=== PATIENT | female | born 1935 | race Caucasian/White ===

== ENCOUNTER → 2016-12-18 | Outpatient (CLI) | payer OTHER, MEDICARE | LOC: BHLMT 09:15 | PROVIDERS: ATTEND Internal Medicine Cardiovascular Disease | DX: R01.1 Cardiac murmur, unspecified (principal); R09.89 Other specified symptoms and signs involving the circulatory and respiratory systems | CPT/HCPCS: 93306-PO; 93880-PO ==

== ENCOUNTER → 2017-09-22 | Outpatient (CLI) | payer OTHER, MEDICARE | LOC: BHLMT 14:00 | PROVIDERS: ATTEND Internal Medicine Cardiovascular Disease | DX: H34.239 Retinal artery branch occlusion, unspecified eye (principal); H34.211 Partial retinal artery occlusion, right eye | CPT/HCPCS: 93306-PO ==

== ENCOUNTER → 2018-03-29 | Outpatient (CLI) | payer OTHER, MEDICARE | LOC: BHFA 13:45 | PROVIDERS: ATTEND Nurse Practitioner Adult Health | DX: N18.3 Chronic kidney disease, stage 3 (moderate) (principal); I10 Essential (primary) hypertension ==

== ENCOUNTER 2018-04-01 16:24 | Inpatient (IN) | payer OTHER, MEDICARE ==
--- NOTE | 2018-04-01 17:47 | EDPHY ---
H & P Stated Complaint: Coordination problems left arm 1200. No noticeable deficit now. 2wk neck pn Time Seen by Provider: 04/01/18 16:58 HPI/ROS: My Chief Complaint: Discoordination, neck pain HPI: 83-year-old woman presenting with an episode of discoordination this morning. Patient states that she has been having some intermittent symptoms for the last couple weeks after she had jaw surgery. After just surgeries who is been having significant left-sided neck pain. This has been associated with episodes of hypertension. Her primary care physician started on metoprolol. She then switch to losartan which she started today. She took the 1st dose of losartan this morning at 9:00 a.m.. She says approximately 2 hr later she had an episode of discoordination on with her left hand. She was unable poor T and almost dropped a tea kettle. The symptoms lasted for about an hour and then resolved. She says the neck pain it tends to be worsening later afternoons in his associated with episodes when her blood pressure is high. She is currently pain-free. The daughter did notice some possible mild dysarthric speech as well. No difficulty word finding. No numbness or weakness. Daughter is also complaining that she had some discoordinated gait while she was having or discoordination of her left hand today. Does not have a history of prior episodes. No family history of stroke. ROS: 10 systems were reviewed and were negative except those elements noted in the HPI. Social History: No smoking, no alcohol, no recreational drug use Family History: non-contributory Physical Exam: Gen: Awake, Alert, No Distress HEENT: Nose: no rhinorrhea Eyes: PERRLA, EOMI Mouth: Moist mucosa Neck: Supple, no JVD Chest: nontender, lungs clear to auscultation Heart: S1, S2 normal, no murmur Abd: Soft, non-tender, no guarding Back: no CVA tenderness, no midline tenderness Ext: no edema, non-tender Skin: no rash Neuro: CN II-XII intact, Sensation grossly intact, Strength 5/5 in bilateral upper and lower extremities, see NIH stroke scale - Personal History Current Tetanus/Diphtheria Vaccine: Unsure - Medical/Surgical History Hx Asthma: Yes Hx Chronic Respiratory Disease: No Hx Diabetes: No Hx Cardiac Disease: No Hx Renal Disease: No Hx Cirrhosis: No Hx Alcoholism: No Hx HIV/AIDS: No Hx Splenectomy or Spleen Trauma: No Other PMH: tubal ligation, - Social History Smoking Status: Former smoker Constitutional: Initial Vital Signs Temperature (C) 36.3 C 04/01/18 16:26 Heart Rate 70 04/01/18 16:26 Respiratory Rate 18 04/01/18 16:26 Blood Pressure 149/72 H 04/01/18 16:26 O2 Sat (%) 96 04/01/18 16:26 O2 Delivery Mode Room Air Allergies/Adverse Reactions: albuterol Allergy (Verified 04/01/18 18:14) bee venom protein (honey bee) Allergy (Verified 04/01/18 18:14) ciprofloxacin Allergy (Verified 04/01/18 18:14) ibuprofen Allergy (Verified 04/01/18 19:30) Unknown lactose Allergy (Verified 04/01/18 18:14) latex Allergy (Verified 04/01/18 18:14) Penicillins Allergy (Verified 04/01/18 18:14) Home Medications: Medication Instructions Recorded Tiotropium Inhaler [Spiriva 18 mcg IH HS 04/01/18 Handihaler] Medical Decision Making - Diagnostics Imaging Results: Imaging Impressions Head CT 04/01/18 17:17 Impression: 1. Moderate periventricular white matter change is seen indicating underlying small vessel ischemic disease. 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 No evidence for acute intracranial abnormality. 2. Mild chronic sinus related change as above. 3. Mild generalized cerebral atrophy. Results called and discussed with Daniel Renae MD, on 04/01/2018, 17:38. ED Course/Re-evaluation: CT head is negative. Laboratory evaluations are unremarkable. Neurological examination is unremarkable. Her recent complaints of neck pain after her surgery and her cerebellar complaints are concerning so will obtain a CT angiogram of her head and neck to rule out vertebral artery pathology. I have discussed the case with Dr. Arias, hospitalist. She will admit to her service for further evaluation for TIA. Patient has received aspirin here. - Data Points Medications Given: Discontinued Medications Aspirin (Aspirin) 325 mg PO EDNOW ONE Stop: 04/01/18 17:54 Last Admin: 04/01/18 18:18 Dose: 325 mg Sodium Chloride (Ns) 1,000 mls @ 0 mls/hr IV ONCE ONE; Wide Open PRN Reason: Protocol Stop: 04/01/18 19:10 Last Admin: 04/01/18 19:21 Dose: 1,000 mls Departure - Departure Condition: Fair NIH Stroke Scale Date of Exam: 04/01/18 Time of Exam: 18:00 Level of Consciousness: Alert LOC Questions: Answers Both LOC Commands: Performs Both Correctly Best Gaze: Normal Visual: No Visual Loss Facial Palsy: Normal Motor Arm-Left: No Drift Motor Arm-Right: No Drift Motor Leg-Left: No Drift Motor Leg-Right: No Drift Limb Ataxis: Absent Sensory: Normal Best Language: No Aphasia Dysarthria: Normal Extinction and Inattention (Neglect): No Abnormality NIH Scale Score: 0
[2018-04-01] MEDS ORDERED: ASPIRIN 325 MG TAB PO ONE (17:53)
[2018-04-01 18:47] LABS: PLATELET COUNT 254 10^3/uL (150-400)
[2018-04-01] MEDS ORDERED: NS 1,000 ML IV ONE (19:09)
[2018-04-01] MEDS ORDERED: IOPAMIDOL (ISOVUE 370) 100 ML BTL IV ONE (19:20)
[2018-04-01] MEDS ORDERED: ONDANSETRON 4 MG/2 ML VIAL IVP PRN (19:22)
[2018-04-01] MEDS ORDERED: PROMETHAZINE HCL 25 MG/ML INJ IVP PRN (19:22)
[2018-04-01] MEDS ORDERED: ONDANSETRON DISINTEGRATING 4 MG TAB PO PRN (19:22)
[2018-04-01] MEDS ORDERED: ACETAMINOPHEN 325 MG TAB PO PRN (19:22)
[2018-04-01] MEDS ORDERED: HYDROCODONE/APAP 5/325 TAB PO PRN (19:22)
[2018-04-01] MEDS ORDERED: oxyCODONE IR 5 MG TAB PO PRN (19:22)
[2018-04-01] MEDS ORDERED: PROTOCOL MAGNESIUM 1 DOSE IV PRN (19:27)
[2018-04-01] MEDS ORDERED: PROTOCOL POTASSIUM 1 DOSE MISC PRN (19:27)
[2018-04-01] MEDS ORDERED: NS 1,000 ML IV SCH (19:30)
--- NOTE | 2018-04-01 20:54 | PDGENHP ---
History and Physical - Chief Complaint left hand clumsiness - History of Present Illness 83 yo F with PMH that includes asthma/copd, CKD and bronchiectasis presenting with complaints of left hand clumsiness that began this morning along with some gait instability. Patient has also been having issues with severe left sided neck pain that has been present since she underwent a tooth extraction and bone graft a few weeks ago. She notes when she showed up for her surgery her BP was extremely elevated, systolic of 200, and then since the surgery she has had issues with her BP being high as well. When her BP is up it seems to exacerbate her neck pain and feels as if her neck will tighten up when the bp rises. She was started on antihypertensives by her PCP but has had negative reactions to them--she was first on metoprolol, then norvasc and more recently losartan. She notes it seemed as thought the first two BP meds were making her a bit more confused than usual, forgetful and at times dizzy. The symptoms she had today were different than that however--she found she could not pour tea or do any fine motor with her left hand which is her dominant hand. Her daughter noticed her gait was wobbly as well. She feels that all of these sxs have essentially resolved at this point other than the neck stiffness and elevated bp. History Information - Allergies/Home Medication List Allergies/Adverse Reactions: albuterol Allergy (Verified 04/01/18 18:14) bee venom protein (honey bee) Allergy (Verified 04/01/18 18:14) ciprofloxacin Allergy (Verified 04/01/18 18:14) ibuprofen Allergy (Verified 04/01/18 19:30) Unknown lactose Allergy (Verified 04/01/18 18:14) latex Allergy (Verified 04/01/18 18:14) Penicillins Allergy (Verified 04/01/18 18:14) Home Medications: Tiotropium Inhaler [Spiriva Handihaler] 18 mcg IH HS 04/01/18 [Last Taken ] I have personally reviewed and updated: family history, medical history, social history, surgical history - Past Medical History asthma, COPD, hypertension, hyperlipidemia Additional medical history: ckd stage 3. bronchiectasis. osteopenia. pre- diabetes - Surgical History Additional surgical history: tubal ligation. cataract surgery x 2--both times complicated by bleeding issues. 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 Review of Systems Review of Systems: ROS: 10pt was reviewed & negative except for what was stated in HPI & below Physical Exam Physical Exam: Temp Pulse Resp BP Pulse Ox 36.3 C 67 18 166/82 H 96 04/01/18 16:26 04/01/18 20:45 04/01/18 20:45 04/01/18 20:45 04/01/18 20:45 Constitutional: no apparent distress, appears nourished Eyes: PERRL, anicteric sclera Ears, Nose, Mouth, Throat: moist mucous membranes, hearing normal Cardiovascular: regular rate and rhythym, no murmur, rub, or gallop, No edema Respiratory: no respiratory distress, no rales or rhonchi, reduced air movement Gastrointestinal: normoactive bowel sounds, soft, non-tender abdomen Genitourinary: no bladder tenderness Skin: warm, normal color Musculoskeletal: full muscle strength, no muscle tenderness Neurologic: AAOx3, CN II-XII Intact, No weakness, No numbness Psychiatric: interacting appropriately, not anxious, not encephalopathic Lab Data & Imaging Review 04/01/18 18:32 04/01/18 18:32 WBC 10.37 10^3/uL (3.80-9.50) H 04/01/18 18:32 RBC 4.97 10^6/uL (4.18-5.33) 04/01/18 18:32 Hgb 14.1 g/dL (12.6-16.3) 04/01/18 18:32 Hct 41.2 % (38.0-47.0) 04/01/18 18:32 MCV 82.9 fL (81.5-99.8) 04/01/18 18:32 MCH 28.4 pg (27.9-34.1) 04/01/18 18:32 MCHC 34.2 g/dL (32.4-36.7) 04/01/18 18:32 RDW 13.4 % (11.5-15.2) 04/01/18 18:32 Plt Count 254 10^3/uL (150-400) 04/01/18 18:32 MPV 10.6 fL (8.7-11.7) 04/01/18 18:32 Neut % (Auto) 70.7 % (39.3-74.2) 04/01/18 18:32 Lymph % (Auto) 19.7 % (15.0-45.0) 04/01/18 18:32 [place] % (Auto) 8.5 % (4.5-13.0) 04/01/18 18:32 Eos % (Auto) 0.0 % (0.6-7.6) L 04/01/18 18:32 Baso % (Auto) 0.3 % (0.3-1.7) 04/01/18 18:32 Nucleat RBC Rel Count 0.0 % (0.0-0.2) 04/01/18 18:32 Absolute Neuts (auto) 7.34 10^3/uL (1.70-6.50) H 04/01/18 18:32 Absolute Lymphs (auto) 2.04 10^3/uL (1.00-3.00) 04/01/18 18:32 Absolute Monos (auto) 0.88 10^3/uL (0.30-0.80) H 04/01/18 18:32 Absolute Eos (auto) 0.00 10^3/uL (0.03-0.40) L 04/01/18 18:32 Absolute Basos (auto) 0.03 10^3/uL (0.02-0.10) 04/01/18 18:32 Absolute Nucleated RBC 0.00 10^3/uL (0-0.01) 04/01/18 18:32 Immature Gran % 0.8 % (0.0-1.1) 04/01/18 18:32 Immature Gran # 0.08 10^3/uL (0.00-0.10) 04/01/18 18:32 Sodium 127 mEq/L (135-145) L 04/01/18 18:32 Potassium 2.9 mEq/L (3.5-5.2) L 04/01/18 18:32 Chloride 86 mEq/L (97-110) L 04/01/18 18:32 Carbon Dioxide 33 mEq/l (22-31) H 04/01/18 18:32 Anion Gap 8 mEq/L (6-14) 04/01/18 18:32 BUN 31 mg/dL (7-23) H 04/01/18 18:32 Creatinine 1.3 mg/dL (0.6-1.0) H 04/01/18 18:32 Estimated GFR 39 04/01/18 18:32 Glucose 103 mg/dL (70-100) H 04/01/18 18:32 Calcium 9.1 mg/dL (8.5-10.4) 04/01/18 18:32 Magnesium 2.3 mg/dL (1.6-2.3) 04/01/18 18:32 Total Bilirubin 0.7 mg/dL (0.1-1.4) 04/01/18 18:32 Conjugated Bilirubin 0.3 mg/dL (0.0-0.5) 04/01/18 18:32 Unconjugated Bilirubin 0.4 mg/dL (0.0-1.1) 04/01/18 18:32 AST 35 IU/L (14-46) 04/01/18 18:32 ALT 33 IU/L (9-52) 04/01/18 18:32 Alkaline Phosphatase 97 IU/L (38-126) 04/01/18 18:32 Troponin I 0.030 ng/mL (0.000-0.034) 04/01/18 18:32 Total Protein 6.9 g/dL (6.3-8.2) 04/01/18 18:32 Albumin 3.5 g/dL (3.5-5.0) 04/01/18 18:32 Specimen Hemolysis Cancelled 04/01/18 18:32 Visualized and Interpreted imaging results: Yes Interpretation: head CT: no acute abnormaliites. head/neck CTA: no significant stenoses, lung abnormalites noted by radiology Assessment & Plan Assessment: 83 yo F with hx of htn, ckd, copd and chronic bronchiectasis presenting with transient left hand discoordination as well as neck pain and htn # neurologic sxs: resolved after what sounds like several hours and concerning for TIA, initial w/u including head ct, head/neck CTA unremarkable. Will monitor on tele and obtain echo in am, will get brain MRI, neuro consult in am. # neck pain: occurring following jaw surgery and sounds as though it is improving overall but correlated with increased bp raising concern at least somewhat for anginal equivalent. will get ecg and serial trops/serial ecgs/ monitor on tele, echo in am as above. Does not sound c/w nerve impingement or disc herniation really but would consider ct cervical spine if continues and no other etiology found # uncontrolled htn: with difficulty tolerating various meds and increased bp associated with increased neck pain as above, will start prn hydralazine for now , she was recently started on losartan but given beth on ckd as next will hold that for now # beth on ckd: with baseline creatinine closer to 1.1 and currently elevated to 1.3, query if this is due to recent initiation of losartan as above, gentle IVF overnight and recheck in am. Given issues patient has had today may also be related to pre-renal azotemia # hyponatremia: new issue, appears euvolemic to perhaps slightly dry, will check urine sodium/urine osmols, IVF overnight and recheck in am # hypokalemia: will replete, unclear etiology for this # metabolic alkalosis: given associated beth, low sodium and potassium all in all seems most c/w contraction alkalosis, no known diuretic use, has had this in the past as well, given hypertension rather than low bp makes various unusual endocrine d/o's less likely, may be unrelated and due to chronic co2 retention from copd/bronchiectasis # copd/asthma: no s/s of acute exacerbation, continue tiotropium # chronic bronchiectasis: noted on CT of neck and without sxs of acute exacerbation, unclear how long ago last imaging specific to lungs was and if she has regular f/u with pulmonary--this will need to be clarified prior to dc and if not currently connected with pulmonary to connect her # DNR--has MOST form in [place] observation status, patient new to my care. Old records reviewed and summarized as above. Care plan reviewed with ER doctor as above. Further hx obtained from patients daughter present at bedside.
[2018-04-01] MEDS: TIOTROPIUM INHALER 18 MCG/DOSE 5 DOSE/MDI IH SCH (21:44)
[2018-04-01] MEDS ORDERED: POTASSIUM CL 20 MEQ TAB PO ONE (22:30)
[2018-04-02] MEDS: hydrALAZINE 20 MG/ML VIAL IVP PRN ×3 (05:03→23:43)
[2018-04-02] MEDS: ASPIRIN 325 MG TAB PO SCH (08:26)
[2018-04-02 08:32] LABS: PLATELET COUNT 228 10^3/uL (150-400)
--- NOTE | 2018-04-02 10:28 | NEUROPROG ---
Assessment: [id number] - Neurology Consult: - CC: Left Hand Clumsiness - HPI: Pt had a tooth extraction graft a few weeks prior to 04/01/18. Since then she has noted severe left sided neck pain. On 04/01/18 she noted some transient left hand clumsiness and a sense of poor gait. Symptoms resolved. Pt was not on aspirin or antiplatelet therapy. Pt went to [facility] ER. Head CT and CTA head/ neck unremarkable. Pt admitted for stroke evaluation. I initially saw the patient on 04/02/18. Neurologic exam on 04/02/18 was normal. I will complete a stroke evaluation and obtain a cervical MRI wo con to assess her neck pain. - PMHx: jaw surgery, tubal ligation, asthma/COPD, CKD, bronchiectasis, prediabetes , osteopenia - SHx: no tobacco FHx: no stroke - ROS: Pt denied acute fever, total vision loss, active severe chest pain, respiratory failure, total body severe rash, total bowel/bladder incontinence, psychosis, active seizures, or active bleeding - O: VS reviewed General: Alert Eyes: Fundoscopic exam not able to visualize optic disks CV: Heart RRR, no murmur, no carotid bruit Lungs: Clear to auscultation bilaterally, no rhonchi or rales Neuro: - Mental: . Oriented x person/place/date . concentration appears normal . speech fluency/comprehension normal . memory appears normal . fund of knowledge appear intact - Cranial Nerves: . II: PERRL, VFFTC . III/IV/: EOMI, no nystagmus, normal smooth pursuits, no Ptosis . V: facial sensation intact to LT . VII: face symmetric to eye closure and smile . VIII: hearing intact to conversation . IX/X: uvula raises symmetrically . XI: SCM 5/5 B/L strength . XII: tongue protrudes midline w/nl strength - Motor: . Tone: normal tone in all 4 extremity . 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 < 70 - H1AC < 7.0 - PT/OT/SPeech to determine rehab needs - Cervical MRI wo con to evaluate neck pain - F/U neurology clinic 1-6 weeks after hospital discharge Objective: Vital Signs Temp Pulse Resp BP Pulse Ox 36.6 C 94 18 188/98 H 93 04/02/18 07:18 04/02/18 08:23 04/02/18 08:23 04/02/18 08:23 04/02/18 08:23 Laboratory Results 04/02/18 08:17 04/02/18 08:17 04/01/18 04/02/18 04/03/18 05:59 05:59 05:59 Intake Total 1000 Output Total 300 250 Balance 700 -250 Allergies/Adverse Reactions: albuterol Allergy (Verified 04/01/18 18:14) bee venom protein (honey bee) Allergy (Verified 04/01/18 18:14) ciprofloxacin Allergy (Verified 04/01/18 18:14) ibuprofen Allergy (Verified 04/01/18 19:30) Unknown lactose Allergy (Verified 04/01/18 18:14) latex Allergy (Verified 04/01/18 18:14) Penicillins Allergy (Verified 04/01/18 18:14)
--- NOTE | 2018-04-02 11:33 | ASMTCMCOM ---
CM Note CM Note Notes: CM reviewed pt's chart for d/c planning. Pt is an 83 y/o female who presented to the ED with mild disarthric speech, episodes of discoordination associated with HTN and left sided neck pain; these symptoms follow a tooth extraction and bone graft which occured 2 weeks ago. She was admitted for a stroke evaluation. OT/PT have been ordered. CM will follow for reccomendations. D/C Plan: TBD Date Signed: 04/02/2018 11:23 AM Electronically Signed By:Debbie Ortega
--- NOTE | 2018-04-02 15:38 | HOSPPROG ---
Hospitalist Progress Note Assessment/Plan: 83 yo F with hx of htn, ckd, copd and chronic bronchiectasis presenting with transient left hand discordination as well as neck pain and htn. First encounter , chart reviewed. # neurologic sxs: -resolved after what sounds like several hours and concerning for TIA - initial w/u including head ct, head/neck CTA unremarkable -neurology consult, D/W Dr Stroud -MRI cervical spine ordered - Will monitor on tele and obtain echo # neck pain: -occurring following jaw surgery 3 weeks ago -cervical spine MRI DDD -CTA neck stable #Recent dental implant -CT to r/o infection or complication -has been ill since #Elevated troponin -mild, repeat pending -possible cardiorenal syndrome -ecg personally reviewed, SR -serial ecgs/monitor on tele - echo # uncontrolled htn: -with difficulty tolerating various meds -increased bp associated with increased neck pain and anxiety -prn hydralazine -she was recently started on losartan but given beth on ckd as next will hold that for now # beth on ckd: -with baseline creatinine closer to 1.1 -elevated to 1.3 -FeNa 1.1, consider renal US -CTA done, follow, consider other cause -query if this is due to recent initiation of losartan -responding to gentle IVF -recheck in am -hold CHALINO # hyponatremia: -resolved -new issue -appears slightly dry # hypokalemia: -will replete, unclear etiology for this -BP meds -follow # metabolic alkalosis: -given associated beth, low sodium and potassium seems most c/w contraction alkalosis -no known diuretic use -unclear picture # copd/asthma: -no s/s of acute exacerbation, continue tiotropium # chronic bronchiectasis: -noted on CT of neck -without sxs of acute exacerbation -unclear how long ago -has regular f/u with pulmonary -this will need to be clarified prior to dc # DNR--has MOST form in [place] Requires further evaluation in the hospital Change to inpt status. Subjective: Feels tired. No energy. Neck pain conts. No other specific complaints. Objective: Vital Signs Temp Pulse Resp BP Pulse Ox 36.9 C 70 19 180/92 H 91 L 04/02/18 11:35 04/02/18 11:35 04/02/18 11:35 04/02/18 11:35 04/02/18 11:35 Laboratory Results 04/02/18 08:17 04/02/18 08:17 04/01/18 04/02/18 04/03/18 05:59 05:59 05:59 Intake Total 1000 Output Total 300 750 Balance 700 -750 - Physical Exam Constitutional: no apparent distress, appears nourished, not in pain Eyes: PERRL, anicteric sclera, EOMI Ears, Nose, Mouth, Throat: moist mucous membranes, hearing normal, ears appear normal Cardiovascular: JVD, No tachycardia, No edema Respiratory: no respiratory distress, no rales or rhonchi, reduced air movement Gastrointestinal: normoactive bowel sounds, No tenderness, No ascites Skin: warm, normal color, No mottled Musculoskeletal: normal joint ROM, no joint effusions, generalized weakness Neurologic: AAOx3 Psychiatric: interacting appropriately, not anxious, not encephalopathic, thought process linear ICD10 Worksheet Patient Problems: Problems Problem Status Onset Coronary artery disease Acute
[2018-04-02] MEDS ORDERED: NITROGLYCERIN 0.4 MG BTL SL ONE ×2 (16:25→16:34)
[2018-04-02] MEDS ORDERED: POTASSIUM CL 10 MEQ TAB PO ONE (16:36)
--- NOTE | 2018-04-02 16:49 | HOSPPROG ---
Hospitalist Progress Note Assessment/Plan: 83 yo F w TIA, \ now w CP, + trop and ekg changes received nitro, CP decreased from 6/10 to 3/10 hypertensive ekg w [address] depression, new from admit received aspirin today trop neg on admit, now 0.276 1. cardiology to see 2. given TIA< dont drive bp too low 3. heparin gtt 4. lopressor 25 po X 1 35 min crit care notablym she was admitted w L arm sx, treated as TIA, may in fact be anginal Subjective: responded tp STAT team for sscp. here for TIA. <MRI neg for stroke Objective: Vital Signs Temp Pulse Resp BP Pulse Ox 37.1 C 79 17 199/86 H 92 04/02/18 15:47 04/02/18 15:47 04/02/18 15:47 04/02/18 15:56 04/02/18 15:47 Laboratory Results 04/02/18 08:17 04/02/18 08:17 04/01/18 04/02/18 04/03/18 05:59 05:59 05:59 Intake Total 1000 Output Total 300 750 Balance 700 -750 - Physical Exam Constitutional: no apparent distress, appears nourished Cardiovascular: no murmur, rub, or gallop Respiratory: no respiratory distress
[2018-04-02] MEDS ORDERED: METOPROLOL TARTRATE 25 MG TAB PO ONE (16:50)
[2018-04-02 16:51] LABS: CREATINE KINASE 138 IU/L (0-156)
[2018-04-02] MEDS ORDERED: HEPARIN 10,000 UNIT/10 ML MDV (1,000 UNIT/ML) IVP PRN (16:51)
[2018-04-02] MEDS ORDERED: HEPARIN/DEXTROSE 500 ML IV SCH (17:00)
--- NOTE | 2018-04-02 17:32 | PDCARCONS ---
Cardiology Consult Reason for Consult: Abnormal ECG with cardiac biomarker elevation Chief Complaint: Chest pains and confusion Requesting Physician: Hospitalist team History of Present Illness: Patient is an 83 y/o female with history of CKD, bronchiectasis, COPD, and asthma, who presented to [facility] with initial complaints of "clumsiness" as well as some degree of unsteady gait. In the recent past, the patient had some dental work done, and with this work, jaw and neck pains were noted. Post surgery, elevated blood pressures were also noted, and manipulation of medical therapy had been ongoing to better control the pressures that were noted (metoprolol, norvasc, and losartan). Patient had been seen earlier in the week by cardiology to assist with blood pressure management. Earlier today, niyah chest pains were noted, and this led to follow up ECG and cardiac biomarker reassessment. Initial ECG with non specific ST/T wave changes being noted. There was also a very mild elevation to troponin. After chest pain, repeat ECG was obtained with more dramatic ST depression noted (up to 3 mm) and further troponin elevation was noted. At present, patient is feeling fair. Given cardiology seeing patient at 5:30 pm , her anxiety is elevated (as well as her blood pressure). No complaints of PND or orthopnea. Weakness and fatigue, and mild confusion are noted. Mild head ache was noted. No fevers or chills. Remainder of 12 point review of systems is unremarkable. History Information - Allergies/Home Medication List Allergies/Adverse Reactions: albuterol Allergy (Verified 04/01/18 18:14) bee venom protein (honey bee) Allergy (Verified 04/01/18 18:14) ciprofloxacin Allergy (Verified 04/01/18 18:14) ibuprofen Allergy (Verified 04/01/18 19:30) Unknown lactose Allergy (Verified 04/01/18 18:14) latex Allergy (Verified 04/01/18 18:14) Penicillins Allergy (Verified 04/01/18 18:14) Home Medications: Tiotropium Inhaler [Spiriva Handihaler] 18 mcg IH HS 04/01/18 [Last Taken ] I have personally reviewed and updated: family history, medical history, social history, surgical history Past Medical History: - Past Medical History asthma, COPD, hypertension - Surgical History Reports: no pertinent surgical hx - Family History Positive for: non-pertinent - Social History Smoking Status: Former smoker Alcohol Use: Rarely Drug Use: None Cardiac History - Cardiac History Cardiac Risk Factors: hypertension (>140/90) Timing/Duration: Days Severity: moderate Severity Scale: 5 Location: substernal, central, epigastric Activities at Onset: activity, emotional stress Modifying Factors: improves with: rest Associated Symptoms: chest pain, headaches, weakness EDMUNDO Risk Evaluation age greater or equal to 65: yes greater or equal to 3 CAD risk factors: yes known CAD(stenosis greater or eqaul to 50%): no ASA use in past 7 days: no severe angina(greater or equal to 2 episodes in 24hrs): yes EKG ST changes greater or equal to 0.5mm: yes positive cardiac marker: yes Total Score: 6 EDMUNDO Score: 40.9% risk Physical Exam Physical Exam: Temp Pulse Resp BP Pulse Ox 37.1 C 79 17 199/86 H 92 04/02/18 15:47 04/02/18 15:47 04/02/18 15:47 04/02/18 15:56 04/02/18 15:47 O2 (L/minute) 1 Constitutional: no apparent distress, appears nourished Eyes: PERRL, EOMI Ears, Nose, Mouth, Throat: moist mucous membranes Cardiovascular: regular rate and rhythym, pulses symmetric bilaterally, No systolic murmur, No JVD, No edema Peripheral Pulses: 2+: dorsalis-pedis (R), dorsalis-pedis (L) Respiratory: no respiratory distress, no rales or rhonchi Gastrointestinal: normoactive bowel sounds Skin: warm, No rash Musculoskeletal: full muscle strength Neurologic: AAOx3, sensation intact bilaterally, CN II-XII Intact Psychiatric: interacting appropriately, not encephalopathic, anxious Lab and Imaging 04/02/18 08:17 04/02/18 08:17 WBC 6.45 10^3/uL (3.80-9.50) 04/02/18 08:17 RBC 4.81 10^6/uL (4.18-5.33) 04/02/18 08:17 Hgb 13.6 g/dL (12.6-16.3) 04/02/18 08:17 Hct 40.5 % (38.0-47.0) 04/02/18 08:17 MCV 84.2 fL (81.5-99.8) 04/02/18 08:17 MCH 28.3 pg (27.9-34.1) 04/02/18 08:17 MCHC 33.6 g/dL (32.4-36.7) 04/02/18 08:17 RDW 13.3 % (11.5-15.2) 04/02/18 08:17 Plt Count 228 10^3/uL (150-400) 04/02/18 08:17 MPV 10.6 fL (8.7-11.7) 04/02/18 08:17 Neut % (Auto) 65.4 % (39.3-74.2) 04/02/18 08:17 Lymph % (Auto) 22.9 % (15.0-45.0) 04/02/18 08:17 [place] % (Auto) 10.9 % (4.5-13.0) 04/02/18 08:17 Eos % (Auto) 0.0 % (0.6-7.6) L 04/02/18 08:17 Baso % (Auto) 0.3 % (0.3-1.7) 04/02/18 08:17 Nucleat RBC Rel Count 0.0 % (0.0-0.2) 04/02/18 08:17 Absolute Neuts (auto) 4.22 10^3/uL (1.70-6.50) 04/02/18 08:17 Absolute Lymphs (auto) 1.48 10^3/uL (1.00-3.00) 04/02/18 08:17 Absolute Monos (auto) 0.70 10^3/uL (0.30-0.80) 04/02/18 08:17 Absolute Eos (auto) 0.00 10^3/uL (0.03-0.40) L 04/02/18 08:17 Absolute Basos (auto) 0.02 10^3/uL (0.02-0.10) 04/02/18 08:17 Absolute Nucleated RBC 0.00 10^3/uL (0-0.01) 04/02/18 08:17 Immature Gran % 0.5 % (0.0-1.1) 04/02/18 08:17 Immature Gran # 0.03 10^3/uL (0.00-0.10) 04/02/18 08:17 Sodium 136 mEq/L (135-145) 04/02/18 08:17 Potassium 2.9 mEq/L (3.5-5.2) L 04/02/18 08:17 Chloride 98 mEq/L (97-110) 04/02/18 08:17 Carbon Dioxide 32 mEq/l (22-31) H 04/02/18 08:17 Anion Gap 6 mEq/L (6-14) 04/02/18 08:17 BUN 22 mg/dL (7-23) 04/02/18 08:17 Creatinine 1.2 mg/dL (0.6-1.0) H 04/02/18 08:17 Estimated GFR 43 04/02/18 08:17 Glucose 109 mg/dL (70-100) H 04/02/18 08:17 POC Glucose 184 mg/dL (70-100) H 04/02/18 16:19 Calcium 8.8 mg/dL (8.5-10.4) 04/02/18 08:17 Magnesium 2.2 mg/dL (1.6-2.3) 04/02/18 08:17 Total Bilirubin 0.7 mg/dL (0.1-1.4) 04/01/18 18:32 Conjugated Bilirubin 0.3 mg/dL (0.0-0.5) 04/01/18 18:32 Unconjugated Bilirubin 0.4 mg/dL (0.0-1.1) 04/01/18 18:32 AST 35 IU/L (14-46) 04/01/18 18:32 ALT 33 IU/L (9-52) 04/01/18 18:32 Alkaline Phosphatase 97 IU/L (38-126) 04/01/18 18:32 Creatine Kinase 138 IU/L (0-156) 04/02/18 16:00 Troponin I 0.239 ng/mL (0.000-0.034) H 04/02/18 16:00 Total Protein 6.9 g/dL (6.3-8.2) 04/01/18 18:32 Albumin 3.5 g/dL (3.5-5.0) 04/01/18 18:32 Triglycerides 111 mg/dL (35-135) 04/02/18 08:17 Cholesterol 250 mg/dL (140-220) H 04/02/18 08:17 Cholesterol Risk Factr 1.0 (0.2-1.0) 04/02/18 08:17 LDL Cholesterol, Calc 171 mg/dL (80-100) H 04/02/18 08:17 LDL Risk Factor 1.0 (0.2-1.0) 04/02/18 08:17 VLDL Cholesterol 22 mg/dL (8-25) 04/02/18 08:17 Non-HDL Cholesterol 193 mg/dL (90-129) H 04/02/18 08:17 HDL Cholesterol 57 mg/dL (40-85) 04/02/18 08:17 LDL/HDL Ratio 3.00 RATIO (1.00-3.22) 04/02/18 08:17 Cholesterol/HDL Ratio 4.39 RATIO (1.00-4.44) 04/02/18 08:17 Specimen Hemolysis Cancelled 04/01/18 18:32 Urine Color PALE YELLOW 04/01/18 19:58 Urine Appearance CLEAR 04/01/18 19:58 Urine pH 6.0 (5.0-7.5) 04/01/18 19:58 Ur Specific [place] 1.009 (1.002-1.030) 04/01/18 19:58 Urine Protein 2+ (NEGATIVE) H 04/01/18 19:58 Urine Ketones NEGATIVE (NEGATIVE) 04/01/18 19:58 Urine Blood 2+ (NEGATIVE) H 04/01/18 19:58 Urine Nitrate NEGATIVE (NEGATIVE) 04/01/18 19:58 Urine Bilirubin NEGATIVE (NEGATIVE) 04/01/18 19:58 Urine Urobilinogen NEGATIVE EU (0.2-1.0) 04/01/18 19:58 Ur Leukocyte Esterase NEGATIVE (NEGATIVE) 04/01/18 19:58 Urine RBC 1-3 /hpf (0-3) 04/01/18 19:58 Urine WBC 1-3 /hpf (0-3) 04/01/18 19:58 Ur Epithelial Cells TRACE /lpf (NONE-1+) 04/01/18 19:58 Urine Osmolality 141 mosmo/kg (300-900) L 04/01/18 19:58 Ur Random Creatinine 27.4 mg/dL 04/02/18 11:02 Ur Random Sodium 33 mEq/L (30-90) 04/02/18 11:02 Urine Glucose NEGATIVE (NEGATIVE) 04/01/18 19:58 Visualized and Interpreted EKG results: Yes EKG Interpretation: Positive for: normal sinsus rhythm, ST depression Telemetry: normal sinus rhythm Echocardiogram: Grossly normal left ventricular systolic ejection fraction. No significant valve pathology was noted. A/P Assessment: Patient is an 83 y/o female with history of COPD, asthma, renal insufficiency ( Cr today was 1.2), with relatively newly noted HTN, but no prior history of CAD , HLP, or DM, who presented to [facility] with complaints of confusion and gait instability. Initial ECG with non specific ST/T wave changes noted and minimal cardiac biomarker elevation was noted. After chest pains today, ECG with more pronounced ECG changes (deep ST depression) as well as further troponin elevation was noted. Echocardiography with normal left ventricular systolic function noted, and no significant valve pathology (this testing was performed in the absence of chest pains). Plan: Cardiology would recommend angiography for this patient given the evolution of symptoms, ECG changes, and cardiac biomarker elevation noted. Risks and benefits of this procedure was discussed with the patient in her room today. Would continue to medicate the elevated blood pressures that have been noted. Concerns given the progressive ECG changes noted as well as further elevation to troponin. 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 She also wanted to "think about the procedure" for a few minutes, which has occurred with the generation of this note. Further recommendations after testing has been performed.
--- NOTE | 2018-04-02 17:48 | ECHO ---
[email or web address] [address] [address] Main: [phone] Fax: Transthoracic Echocardiogram Name: ANTHONY BLEDSOE MR#: [id number] Study Date: 04/02/2018 Study Time: 01:33 PM Date of : 1935 Age: 83 year(s) Height: 167.6 cm (66 in.) Weight: 53.52 kg (118 lb.) BSA: 1.6 m2 Gender: Female Examination: Echo Indication: TIA, HTN, Neck Pain Image Quality: Contrast: Requested by: Freddy Arias BP: 180 mmHg/92 mmHg Heart Rate: Rhythm: Normal sinus rhythm with ectopy Indication: TIA, HTN, Neck Pain Procedure Staff Automatic Packer Operator: Enoch Topete RDCS Reading Physician: Chip Brown MD Requesting Provider: Conclusions: Normal size left ventricle. Mild concentric LV hypertrophy. Normal global systolic LV function. EF is 66 %. No regional wall motion abnormality. Grade 1 diastolic dysfunction (abnormal relaxation). Normal size right ventricle. The left atrium is normal in size. The right atrium is normal in size. Mild mitral valve regurgitation is present. There is mild thickening of the aortic cusps. The aortic valve is tri-leaflet. There is no aortic valve regurgitation. The tricuspid valve appears normal. The pulmonary artery pressure is normal. There is no pulmonic regurgitation seen. No pericardial effusion. Measurements: Chambers Valvular Assessment AV/MV Valvular Assessment TV/PV Normal Normal Normal Name Value Range Name Value Range Name Value Range Ao Anjelica (MM): 2.2 cm (2.2 cm-3.7 AV Vmax: 1.72 m/s (1 m/s-1.7 PV Vmax: 0.91 m/s (0.6 m/s-0.9 cm) m/s) m/s) IVSd (2D): 1.1 cm (0.6 cm-1.1 AV maxP mmHg ( - ) PV PGmax: 3 mmHg ( - ) cm) AV meanP mmHg ( - ) LVDd (2D): 3.5 cm (3.9 cm-5.3 LVOT Vmax: 0.97 m/s (0.7 m/s-1.1 cm) m/s) LVDs (2D): 2.2 cm (2.1 cm-4 MIGUEL ANGEL (Vmax): 1.6 cm2 ( - ) cm) MIGUEL ANGEL (VTI): 1.6 cm ( - ) Patient: ANTHONY BLEDSOE Study Date: 04/02/2018 Page 1 of 2 01:33 PM LVPWd (2D): 1.0 cm ( - ) MV E Vmax: 0.70 m/s ( - ) LVOTd 1.9 cm 1.9 cm mm MV A Vmax: 1.09 m/s ( - ) LVEF (2D): 66 (>=54 %) MV E/A: 0.64 ( - ) Continued Measurements: Chambers Valvular Assessment AV/MV Name Value Name Value LADs Lon.0 cm MV E' Septal: 0.05 m/s LA Area: 13.8 cm2 MV E/E' Septal: 14.90 LA Volume: 27 ml MV E/E' Lateral: 10.30 LA Volume Index: 16.9 ml/m2 Findings: Left Ventricle: Normal size left ventricle. Mild concentric LV hypertrophy. Normal global systolic LV function. EF is 66 %. No regional wall motion abnormality. Grade 1 diastolic dysfunction (abnormal relaxation). Right Ventricle: Normal size right ventricle. Normal RV function. Left Atrium: The left atrium is normal in size. Right Atrium: The right atrium is normal in size. Mitral Valve: There is mild thickening of the mitral valve leaflets. Mild mitral valve regurgitation is present. Aortic Valve: There is mild thickening of the aortic cusps. The aortic valve is tri-leaflet. There is no aortic valve regurgitation. No aortic valve stenosis is present. Tricuspid Valve: The tricuspid valve appears normal. The pulmonary artery pressure is normal. There is no significant tricuspid valve regurgitation. Pulmonic Valve: The pulmonic valve is normal in appearance and function. There is no pulmonic regurgitation seen. Aorta: The aorta is normal. Pericardium: No pericardial effusion. (No Signature Object) Patient: ANTHONY BLEDSOE Study Date: 04/02/2018 Page 2 of 2 01:33 PM [id number]
[2018-04-02 17:56] LABS: PLATELET COUNT 251 10^3/uL (150-400)
[2018-04-02 18:03] LABS: INR 1.02 (0.83-1.16); PROTIME(PATIENT) 13.6 SEC (12.0-15.0)
[2018-04-02] MEDS ORDERED: IOPAMIDOL (ISOVUE-370) 150 ML BTL IV ONE (18:05)
[2018-04-02] MEDS ORDERED: LIDOCAINE 1% 300 MG/30 ML SDV ONE (18:05)
--- NOTE | 2018-04-02 18:29 | PDPROPOC ---
Sedation Plan of Care Sedation Plan of Care: vital signs stable, mental status noted, patient educated of risks, benefits, alternatives, patient can tolerate sedation ASA Classification: ASA 2 Planned drugs: fentanyl, midazolam Mallampati Score: Class 2 Mallampati Reference Image: Patient passed 3-3-2 rule?: Yes
--- NOTE | 2018-04-02 19:02 | PDMN ---
Medical Necessity Medical necessity: Pt meets INPT criteria per MD as of 04/02/18 and MCG M-89 Chest Pain (est. LOS >2 MN for ongoing eval/tx of chest pain, elevated troponin , uncontrolled htn; angiogram pending; beth on ckd).
[2018-04-02] MEDS ORDERED: fentaNYL 100 MCG/2 ML INJ ONE (19:04)
[2018-04-02] MEDS ORDERED: MIDAZOLAM 2 MG/2 ML VIAL ONE (19:04)
[2018-04-02] MEDS ORDERED: METOPROLOL TARTRATE 5 MG/5 ML INJ ONE ×2 (19:12→19:19)
--- NOTE | 2018-04-02 19:43 | PDDXCAT ---
Diagnostic Cath Note - . 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 There was a principal diagonal noted with severe ostial disease. In the mid portion of this diagonal , there was also a critical stenosis noted. In the mid LAD, disease of 50% was noted. LCX: Medium diameter vessel with diffuse disease noted. There were two Obtuse Marginals with the second being the more principal. In the mid portion of OM2, there is 60-70% stenosis noted. Moderate to severe tortuosity was noted throught this system. RCA: This is the dominant vessel (supply to the PDA) with long narrowing of the ostial/proximal vessel. Early take off for the PDA was noted. Moderate tortuosity was noted. Diffuse disease was noted throughout. EDP: 16-18 mm Hg LVEF: 60% Wall motion: grossly normal Complications: none Estimated blood loss: <50ml Closure method: manual pressure Assessment: Patient is an 83 y/o female with HTN (relatively untreated), HLP ( per reports), and critical CAD (LM, LAD, LCX, and RCA), with preserved LVEF. Plan: Recommendations are for surgical consultation Would begin beta blockers (Coreg) as well as statins (Crestor) Coverage overnight with heparin (no bolus, after 2-3 hours from angiography) I did discuss results with the patient's daughter this evening. Intervention: none
[2018-04-02] MEDS ORDERED: ATROPINE SULFATE 1 MG/10 ML SYR IVP PRN (20:58)
[2018-04-02] MEDS ORDERED: NITROGLYCERIN 0.4 MG BTL SL PRN (20:58)
[2018-04-02] MEDS: TIOTROPIUM INHALER 18 MCG/DOSE 5 DOSE/MDI IH SCH (21:28)
[2018-04-02] MEDS: ROSUVASTATIN CALCIUM 10 MG TAB PO SCH (23:30)
[2018-04-02] MEDS: CARVEDILOL 3.125 MG TAB PO SCH (23:30)
[2018-04-03] MEDS ORDERED: POTASSIUM CL 20 MEQ/15 ML UDCUP PO ONE (00:30)
[2018-04-03] MEDS: CARVEDILOL 3.125 MG TAB PO SCH ×2 (09:24→18:26)
[2018-04-03] MEDS: ASPIRIN 325 MG TAB PO SCH (09:25)
[2018-04-03] MEDS: ROSUVASTATIN CALCIUM 10 MG TAB PO SCH (09:25)
--- NOTE | 2018-04-03 10:29 | PDCARPN ---
Cardiology Progress Note Chief Complaint: Weakness and fatigue Assessment/Plan: Assessment: 04-03-18 No cardiovascular events overnight. Angiography was performed last night, and multivessel - specifically left main - stenosis was noted. Preserved systolic function. Discussion last night with daughter (patient was recovering from the procedure), and this morning with the patient alone. Cardiology with recommendations for patient to have a CT surgery consult for discussion about the procedure (rather than decline the procedure with cardiology alone). She is DNR. Shower this morning, and she is feeling "much better" 04-02-18 Patient is an 83 y/o female with history of CKD, bronchiectasis, COPD, and asthma, who presented to [facility] with initial complaints of "clumsiness" as well as some degree of unsteady gait. In the recent past, the patient had some dental work done, and with this work, jaw and neck pains were noted. Post surgery, elevated blood pressures were also noted, and manipulation of medical therapy had been ongoing to better control the pressures that were noted (metoprolol, norvasc, and losartan). Patient had been seen earlier in the week by cardiology to assist with blood pressure management. Earlier today, niyah chest pains were noted, and this led to follow up ECG and cardiac biomarker reassessment. Initial ECG with non specific ST/T wave changes being noted. There was also a very mild elevation to troponin. After chest pain, repeat ECG was obtained with more dramatic ST depression noted (up to 3 mm) and further troponin elevation was noted. At present, patient is feeling fair. Given cardiology seeing patient at 5:30 pm, her anxiety is elevated (as well as her blood pressure). No complaints of PND or orthopnea. Weakness and fatigue, and mild confusion are noted. Mild head ache was noted. No fevers or chills. Remainder of 12 point review of systems is unremarkable. Plan: (1) Recommendations for CT surgery to consult on this patient (2) Would maintain Coreg for HTN control assistance (3) Low dose ASA (81 mg per day) for noted CAD (4) Continue mid dose statin (high dose could be justified, but agree with starting the patient on 10 mg) given history of HLP and the noted CAD (5) Will speak with the patient later today, after CT surgery Subjective: No cardiovascular complaints Reviewed/Discussed With: hospitalist Objective: Vital Signs (8 Hrs) Temp Pulse Resp BP Pulse Ox 12/08/18 07:30 37.0 C 74 19 163/66 H 95 04/03/18 05:40 36.9 C 71 17 148/91 H 91 L 04/03/18 04:00 36.6 C 76 17 121/80 H 98 Intake/Output (24 Hrs) 04/02/18 04/03/18 04/04/18 05:59 05:59 05:59 Intake Total 726 Output Total 1600 Balance -874 Intake: Oral (ml) 250 IV Intake (ml) 400 IV Infused (ml) 76 Heparin/Dextrose 500 ml @ 76 Per Protocol IV CONT QUENTIN Rx#:[id number] Output: Urine (ml) 1600 Toilet 1600 Other: Number of Voids Bedpan 1 Toilet 1 Result Diagrams: 04/03/18 05:45 04/03/18 05:45 Cardiac Labs: Cardiac Lab Results (72 Hrs) 04/03/18 05:45 Troponin I 0.526 H Telemetry: normal sinus rhythm Echocardiogram: normal LVEF - Physical Exam Constitutional: WDWN, healthy appearing, no apparent distress Eyes: PERRL, EOMI Ears, Nose, Mouth, Throat: moist mucous membranes Cardiovascular: regular rate and rhythm, no murmurs, no rubs, no gallops, pulses symmetric bilat, No jugular vein distention Peripheral Pulses: 2+: dorsalis-pedis (R), dorsalis-pedis (L) Respiratory: clear to auscultate bilat, no crackles, no wheezes Gastrointestinal: normoactive bowel sounds Skin: no rashes, no edema Musculoskeletal: no muscular tenderness Neurologic: AAOx3, CN II-XII grossly intact Psychiatric: cooperative, interactive, following commands ICD10 Worksheet Patient Problems: Problems Problem Status Onset Coronary artery disease Acute - ICD10 Problem Qualifiers (1) Coronary artery disease Qualifiers: Coronary Disease-Associated Artery/Lesion type: [place] artery Associated angina: with stable angina
[2018-04-03] MEDS ORDERED: POTASSIUM CL 10 MEQ TAB PO ONE (11:01)
--- NOTE | 2018-04-03 11:22 | NEUROPROG ---
Assessment: [id number] - Neurology Consult: - CC: F/U for Left Hand Clumsiness - Narrative Summary: Pt had a tooth extraction graft a few weeks prior to 04/01/18. Since then she has noted severe left sided neck pain. On 04/01/18 she noted some transient left hand clumsiness and a sense of poor gait. Symptoms resolved. Pt was not on aspirin or antiplatelet therapy. Pt went to [facility] ER. Head CT and CTA head/ neck unremarkable. Pt admitted for stroke evaluation. I initially saw the patient on 04/02/18. Neurologic exam on 04/02/18 was normal. I will complete a stroke evaluation and obtain a cervical MRI wo con to assess her neck pain. - HPI: F/U 04/03/18. Brain MRI showed small right parietal stroke which may be the cause of her left hand clumsiness. LDL 171. Cervical MRI wo showed degenerative changes which may be the cause of her neck pain however she also has possible cardiac issues so that could also be the cause. TTE was generally unremarkable. Cardiology evaluating patient as well for chest pain. Pt clinically unchanged. 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 Small focus of acute cortical ischemia involving the right parietal cortex posteriorly. Minimal mucoperiosteal thickening in the dependent left sphenoid sinus. - 04/02/18- Cervical MRI wo: Multilevel degenerative disk disease with findings most prominent at C3-C4 and at C4-C5 as detailed in full report with associated spinal and neuroforaminal stenoses - 04/02/18- TTE: EF 66%, no cardiac thrombus reported - 04/02/18- 24 hour telemetry: no afib noted - Assessment: 1. 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 Brain MRI wo showed right parietal acute stroke that is small and appears most consistent with small vessel disease (pt does have LDL 171). At clinic f/u I will discuss possible prolonged cardiac monitoring such as LINQ monitor with patient but at this time cardio-embolic stroke seems less likely. CTA head/neck , telemetry, and TTE all unremarkable for stroke cause. Pt with LDL 171 so I recommended beginning statin. Pt started on aspirin for stroke prevention. - 2. Neck pain in setting of cervical degenerative disease: I will consider referral to neurosurgery at clinic f/u visit if neck pain persists. - 3. 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 Objective: Vital Signs Temp Pulse Resp BP Pulse Ox 37.0 C 74 19 163/66 H 95 04/03/18 07:30 04/03/18 07:30 04/03/18 07:30 04/03/18 07:30 04/03/18 07:30 Laboratory Results 04/03/18 05:45 04/03/18 05:45 04/02/18 04/03/18 04/04/18 05:59 05:59 05:59 Intake Total 726 Output Total 1600 Balance -874 PT 13.6 SEC (12.0-15.0) 04/02/18 17:32 INR 1.02 (0.83-1.16) 04/02/18 17:32 Allergies/Adverse Reactions: albuterol Allergy (Verified 04/01/18 18:14) bee venom protein (honey bee) Allergy (Verified 04/01/18 18:14) ciprofloxacin Allergy (Verified 04/01/18 18:14) ibuprofen Allergy (Verified 04/01/18 19:30) Unknown lactose Allergy (Verified 04/01/18 18:14) latex Allergy (Verified 04/01/18 18:14) Penicillins Allergy (Verified 04/01/18 18:14)
--- NOTE | 2018-04-03 12:57 | CPEKG ---
Test Reason : OPEN Blood Pressure : / mmHG Vent. Rate : 074 BPM Atrial Rate : 074 BPM P-R Int : 150 ms QRS Dur : 082 ms QT Int : 512 ms P-R-T Axes : 092 061 065 degrees QTc Int : 569 ms Sinus rhythm Left atrial enlargement Prolonged QT interval Diffuse non specific st-t changes. Confirmed by Mark Mills ([id number]) on 04/03/2018 12:57:23 PM Referred By: Confirmed By:Mark Mills
--- NOTE | 2018-04-03 12:59 | CPEKG ---
Test Reason : OPEN Blood Pressure : / mmHG Vent. Rate : 096 BPM Atrial Rate : 093 BPM P-R Int : 143 ms QRS Dur : 083 ms QT Int : 354 ms P-R-T Axes : 088 054 -74 degrees QTc Int : 448 ms Sinus rhythm Probable LVH with secondary repol abnrm ST depression, consider ischemia, diffuse lds St depression is new. Confirmed by Mark Mills ([id number]) on 04/03/2018 12:59:06 PM Referred By: Confirmed By:Mark Mills
--- NOTE | 2018-04-03 14:04 | ASMTCMCOM ---
CM Note CM Note Notes: Pt discussed in rounds. Pt does not want to have open heart surgery at this time. CM met with pt's daughter who requested referral for SNF to be sent to [facility] in [facility]. CM spoke with Kellie from [facility] and is expecting referral. CM completed referral. CM to follow. Plan: [facility] in [place]. Date Signed: 04/03/2018 02:04 PM Electronically Signed By:EVER Martínez
--- NOTE | 2018-04-03 15:26 | HOSPPROG ---
Hospitalist Progress Note Assessment/Plan: 83 F with severe multivessel CAD. CABG has been recommended but she refuses this. She would like to proceed with primarily comfort measures. Will stop all labs, radiology procedures and tele. Will order palliative care c/s. # CAD/NSTEMI - refusing CT surgery; will stop heparin gtt as she would prefer not to have more blood draws # htn - will continue meds for now # CVA - medical therapy includes asa, statin # cervical stenosis - pain control - not a surgical candidate given unaddressed cardiac issues # hypoK - will continue to replete # dispo - quite debilitated; would like to dc to [facility] Subjective: i had a long discussion with patient, her dtr and grandson; she adamantly refuses a CABG; she has decisional capacity and understands the significant mortality associated with this decision. she also requests to stop all other blood tests Objective: Vital Signs Temp Pulse Resp BP Pulse Ox 36.8 C 68 14 197/84 H 94 04/03/18 12:00 04/03/18 12:00 04/03/18 12:00 04/03/18 12:00 04/03/18 12:00 Laboratory Results 04/03/18 05:45 04/03/18 05:45 04/02/18 04/03/18 04/04/18 05:59 05:59 05:59 Intake Total 726 Output Total 1600 Balance -874 PT 13.6 SEC (12.0-15.0) 04/02/18 17:32 INR 1.02 (0.83-1.16) 04/02/18 17:32 - Time Spent With Patient Time Spent with Patient: greater than 35 minutes Time Spent with Patient: Greater than 35 minutes spent on this patients care, greater than 50% of time spent counseling, educating, and coordinating care regarding the above mentioned plan. - Physical Exam Constitutional: no apparent distress, appears nourished ICD10 Worksheet Patient Problems: Problems Problem Status Onset Coronary artery disease Acute
[2018-04-03] MEDS: NS W/ 20 KCl/L 1,000 ML IV SCH (16:13)
--- NOTE | 2018-04-03 19:29 | GCON ---
DATE OF CONSULTATION: 04/03/2018 REFERRING PHYSICIAN: Chip Brown MD The patient seen at the request of Dr. Brown with the patient's permission. IMPRESSION: 1. Non-Q-wave infarction with critical left main and 3-vessel disease. 2. Multiple allergies. Please see list. 3. History of bronchiectasis, not on oxygen, not documented. RECOMMENDATIONS: This patient should seriously consider coronary artery revascularization at 2% to 3 % risk. She did have a small stroke on admission, which was likely ischemic in nature and does incre ase her risk of stroke, although I think it is minimal. CHIEF COMPLAINT: Complained of neck pain and clumsiness in her hands. This had resolved, and she wa s found on MRI to have had a small right-sided ischemic stroke. Cardiac enzymes revealed elevated tr oponin. She underwent diagnostic left heart catheterization and was found to have critical left main ostial disease as well as right coronary artery disease with normal LV function. MEDICAL HISTORY: As stated in the previous records for hypertension, hyperlipidemia, asthma, and POST MANAGER D, chronic kidney disease stage 3, bronchiectasis, osteopenia, and prediabetic. SURGERIES: Include tubal ligation, cataract surgery x2, tooth extraction with bone graft. FAMILY HISTORY: Not significant. SOCIAL HISTORY: She had a 10 pack-year history of cigarette abuse, stopping 40 years ago. Rarely dr inks alcohol. Has no drug use. She is , retired, , who lives near her daughter here in [place]. REVIEW OF SYSTEMS: Except for ongoing neck discomfort, which may be her angina, on heparin, she is h as no other complaint. PHYSICAL EXAMINATION: GENERAL: A slender, elderly female, appears younger than stated age. HEENT: Normocephalic, PERRLA, EOMI. NECK: Without bruit, adenopathy, thyromegaly. HEART: Regular rate a nd rhythm without murmur. LUNGS: Clear. ABDOMEN: Soft, nontender. Bowel sounds are active. EXTR EMITIES: Pedal pulses are 2+ and symmetrical. No edema. No varicosities. /[id number]/MODL
[2018-04-03] MEDS: TIOTROPIUM INHALER 18 MCG/DOSE 5 DOSE/MDI IH SCH (19:57)
[2018-04-03] MEDS: hydrALAZINE 20 MG/ML VIAL IVP PRN (20:40)
[2018-04-04] MEDS: NS W/ 20 KCl/L 1,000 ML IV SCH (05:35)
[2018-04-04] MEDS ORDERED: CARVEDILOL 3.125 MG TAB PO SCH (09:14)
--- NOTE | 2018-04-04 09:15 | HOSPPROG ---
Hospitalist Progress Note Assessment/Plan: 83 F with severe multivessel CAD. CABG has been recommended but she refuses this. She would like to proceed with primarily comfort measures. We will continue to treat her BP, check labs tomorrow. Tele stopped. Palliative care c /s tomorrow # CAD/NSTEMI - refusing CT surgery; will stop heparin gtt as she would prefer not to have more blood draws # htn - increase coreg 3.125->6.25; add norvasc 2.5 # CVA - medical therapy includes asa, statin, BP control # cervical stenosis - pain control - not a surgical candidate given unaddressed cardiac issues # hypoK - will continue to replete - check labs tomorrow # dispo - quite debilitated; would like to dc to [facility] Subjective: discussed with patient and Zulma (on phone); palliative care will be involved; consider hospice and compassionate choice; will increase coreg and check labs tomorrow Objective: Vital Signs Temp Pulse Resp BP Pulse Ox 36.7 C 73 19 169/84 H 96 04/04/18 08:00 04/04/18 08:00 04/04/18 08:00 04/04/18 04:00 04/04/18 08:00 Laboratory Results 04/03/18 05:45 04/03/18 05:45 04/03/18 04/04/18 04/05/18 05:59 05:59 05:59 Intake Total 726 1750 Output Total 1600 Balance -874 1750 PT 13.6 SEC (12.0-15.0) 04/02/18 17:32 INR 1.02 (0.83-1.16) 04/02/18 17:32 - Physical Exam Constitutional: no apparent distress, appears nourished Eyes: anicteric sclera Ears, Nose, Mouth, Throat: hearing normal Cardiovascular: No edema Respiratory: no respiratory distress Gastrointestinal: No distension Genitourinary: No carter in urethra Skin: normal color Musculoskeletal: full muscle strength Neurologic: AAOx3 Psychiatric: not anxious ICD10 Worksheet Patient Problems: Problems Problem Status Onset Coronary artery disease Acute
--- NOTE | 2018-04-04 09:55 | PDCARPN ---
Cardiology Progress Note Chief Complaint: No cardiovascular complaints Assessment/Plan: Assessment: 04-04-[address] surgery consulted with patient last night. She is not wanting to pursue surgery. She understands the risks of not doing so. She is willing to continue medical therapy at present. It sounds as if hospitalist will have palliative care consult for the patient. No chest pains or pressure. No PND or orthopnea. 04-03-18 No cardiovascular events overnight. Angiography was performed last night, and multivessel - specifically left main - stenosis was noted. Preserved systolic function. Discussion last night with daughter (patient was recovering from the procedure), and this morning with the patient alone. Cardiology with recommendations for patient to have a CT surgery consult for discussion about the procedure (rather than decline the procedure with cardiology alone). She is DNR. Shower this morning, and she is feeling "much better" 04-02-18 Patient is an 83 y/o female with history of CKD, bronchiectasis, COPD, and asthma, who presented to [facility] with initial complaints of "clumsiness" as well as some degree of unsteady gait. In the recent past, the patient had some dental work done, and with this work, jaw and neck pains were noted. Post surgery, elevated blood pressures were also noted, and manipulation of medical therapy had been ongoing to better control the pressures that were noted (metoprolol, norvasc, and losartan). Patient had been seen earlier in the week by cardiology to assist with blood pressure management. Earlier today, niyah chest pains were noted, and this led to follow up ECG and cardiac biomarker reassessment. Initial ECG with non specific ST/T wave changes being noted. There was also a very mild elevation to troponin. After chest pain, repeat ECG was obtained with more dramatic ST depression noted (up to 3 mm) and further troponin elevation was noted. At present, patient is feeling fair. Given cardiology seeing patient at 5:30 pm, her anxiety is elevated (as well as her blood pressure). No complaints of PND or orthopnea. Weakness and fatigue, and mild confusion are noted. Mild head ache was noted. No fevers or chills. Remainder of 12 point review of systems is unremarkable. Plan: (1) Recommendations for medical therapy to continue as at present - coreg for CAD/HTN control - statins for HLP/CAD history - - would have reassessment of cholesterol and LFTs in 5 weeks (2) Lifelong ASA therapy (3) Would have patient seen in the outpatient setting in 7-10 days Subjective: No cardiovascular complaints Reviewed/Discussed With: family, hospitalist Objective: Vital Signs (8 Hrs) Temp Pulse Resp BP Pulse Ox 04/04/18 08:00 36.7 C 73 19 96 04/04/18 04:00 36.8 C 71 14 169/84 H 92 Intake/Output (24 Hrs) 04/03/18 04/04/18 04/05/18 05:59 05:59 05:59 Intake Total 726 1750 Output Total 1600 Balance -874 1750 Intake: Oral (ml) 250 450 IV Intake (ml) 400 IV Infused (ml) 76 1300 Heparin/Dextrose 500 ml @ 76 325 Per Protocol IV CONT QUENTIN Rx#:[id number] NS W/ 20 KCl/L 1,000 ml @ 975 75 mls/hr IV CONT QUENTIN Rx #:[id number] Output: Urine (ml) 1600 Toilet 1600 Other: Number of Voids Bedpan 1 3 Toilet 1 Number of Stools Toilet 1 Result Diagrams: 04/03/18 05:45 04/03/18 05:45 Cardiac Labs: Cardiac Lab Results (72 Hrs) 04/03/18 05:45 Troponin I 0.526 H Telemetry: sinus rhythm - Physical Exam Constitutional: WDWN, healthy appearing, no apparent distress Eyes: PERRL, EOMI Ears, Nose, Mouth, Throat: moist mucous membranes Cardiovascular: regular rate and rhythm Peripheral Pulses: 2+: dorsalis-pedis (R), dorsalis-pedis (L) Respiratory: clear to auscultate bilat, no crackles Gastrointestinal: normoactive bowel sounds Skin: no edema Musculoskeletal: no muscular tenderness Neurologic: AAOx3, CN II-XII grossly intact Psychiatric: cooperative, interactive, following commands ICD10 Worksheet Patient Problems: Problems Problem Status Onset Coronary artery disease Acute - ICD10 Problem Qualifiers (1) Coronary artery disease Qualifiers: Coronary Disease-Associated Artery/Lesion type: [place] artery Associated angina: with stable angina
[2018-04-04] MEDS: ROSUVASTATIN CALCIUM 10 MG TAB PO SCH (10:18)
[2018-04-04] MEDS: ASPIRIN 325 MG TAB PO SCH (10:18)
[2018-04-04] MEDS: CARVEDILOL 3.125 MG TAB PO SCH (10:19)
[2018-04-04] MEDS: hydrALAZINE 20 MG/ML VIAL IVP PRN (10:25)
[2018-04-04] MEDS ORDERED: LORazepam 2 MG/ML INJ IVP PRN (12:07)
[2018-04-04] MEDS ORDERED: morphINE 10 MG/0.5 ML UDSYR PO PRN (12:08)
--- NOTE | 2018-04-04 14:15 | ASMTCMCOM ---
CM Note CM Note Notes: Patient plan of care reviewed with RN. Patien telects to forgo [facility] and wants to go to [facility] with hospice care. Referral placed to [facility] hospice. Patient not having acute pain needs or signs of distress right now. CM to follow for needs. Plan: DC to [facility] with Hospice care. Date Signed: 04/04/2018 02:15 PM Electronically Signed By:Jessica Mahajan RN
--- NOTE | 2018-04-04 15:32 | ASMTCMCOM ---
CM Note CM Note Notes: In review of patient chart with hospice, no immediate hospice needs at this time. Palliative order sent over to [facility] and they will see her tomorrow. Date Signed: 04/04/2018 03:32 PM Electronically Signed By:Jessica Mahajan RN
[2018-04-04] MEDS ORDERED: CARVEDILOL 3.125 MG TAB PO ONE (18:00)
[2018-04-04] MEDS: TIOTROPIUM INHALER 18 MCG/DOSE 5 DOSE/MDI IH SCH (20:37)
[2018-04-04] MEDS: CARVEDILOL 6.25 MG TAB PO SCH (21:24)
[2018-04-05 08:16] LABS: PLATELET COUNT 229 10^3/uL (150-400)
[2018-04-05] MEDS: CARVEDILOL 6.25 MG TAB PO SCH ×2 (09:43→18:17)
[2018-04-05] MEDS: ASPIRIN 325 MG TAB PO SCH (09:46)
[2018-04-05] MEDS: ROSUVASTATIN CALCIUM 10 MG TAB PO SCH (09:46)
--- NOTE | 2018-04-05 11:20 | HOSPPROG ---
Hospitalist Progress Note Assessment/Plan: 83 F with severe multivessel CAD. CABG has been recommended but she refuses this. She would like to proceed with primarily comfort measures. We will continue to treat her BP, check labs tomorrow. Tele stopped. Palliative care c /s erica. # CAD/NSTEMI - refusing CT surgery, would likely refuse a PCI # htn - coreg 6.25; incr norvasc today # CVA - medical therapy includes asa, statin, BP control # cervical stenosis - pain control - not a surgical candidate given unaddressed cardiac issues # hypoK - will continue to replete with IVF # dispo - quite debilitated; would like to dc to [facility] Subjective: no complaints today - overall feels better Objective: Vital Signs Temp Pulse Resp BP Pulse Ox 36.6 C 87 16 176/92 H 91 L 04/05/18 08:00 04/05/18 09:43 04/05/18 08:00 04/05/18 09:43 04/05/18 08:00 Laboratory Results 04/05/18 07:59 04/05/18 07:59 04/04/18 04/05/18 04/06/18 05:59 05:59 05:59 Intake Total 1750 100 Balance 1750 100 PT 13.6 SEC (12.0-15.0) 04/02/18 17:32 INR 1.02 (0.83-1.16) 04/02/18 17:32 discussed with Jim M - Time Spent With Patient Time Spent with Patient: greater than 25 minutes Time Spent with Patient: Greater than 25 minutes spent on this patients care, greater than 50% of time spent counseling, educating, and coordinating care regarding the above mentioned plan. ICD10 Worksheet Patient Problems: Problems Problem Status Onset Coronary artery disease Acute
--- NOTE | 2018-04-05 12:59 | ASMTCMCOM ---
CM Note CM Note Notes: Palliative care consult today - per Jim, patient's daughter would like to interview both [facility] and [facility] for hospice. Orders sent to both agencies. [facility] will visit today and [facility] tomorrow AM. The plan is for patient to discharge to [facility] tomorrow; Kellie from [facility] was here to visit patient today. Case Management will follow. Current CM Discharge plan: [facility] hospice ([facility]) Date Signed: 04/05/2018 12:58 PM Electronically Signed By:Dolores Dash RN
--- NOTE | 2018-04-05 16:47 | ASMTCMCOM ---
CM Note CM Note Notes: Patient's daughter Zulma visited [facility] and was not pleased. She wants to explore other facilities. I suggested [facility], [facility], and [facility]. She will touch base with Case Management tomorrow and let us know where to send referrals. In the meantime, she has an interview w [facility] at 900 tomorrow and one with [facility] at [facility]. Case Management will follow. Date Signed: 04/05/2018 04:46 PM Electronically Signed By:Dolores Dash RN
[2018-04-05] MEDS: TIOTROPIUM INHALER 18 MCG/DOSE 5 DOSE/MDI IH SCH (20:29)
[2018-04-06] MEDS: CARVEDILOL 6.25 MG TAB PO SCH ×2 (09:17→17:36)
[2018-04-06] MEDS: ASPIRIN 325 MG TAB PO SCH (09:17)
[2018-04-06] MEDS: ROSUVASTATIN CALCIUM 10 MG TAB PO SCH (09:17)
--- NOTE | 2018-04-06 09:58 | HOSPPROG ---
Hospitalist Progress Note Assessment/Plan: 83-year-old with a history of hypertension dyslipidemia is admitted with left hand clumsiness and throat and neck pain. She was diagnosed with a small right parietal CVA and has severe CAD # CAD/NSTEMI. 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 * Medical management * Consideration for interventional procedure will discuss with Dr. John * Patient meeting with palliative care and hospice * They have hired [facility] and will need an extra 24-48 hours to get caregivers in place and the hospital bed in place. # HTN, uncontrolled would like to get this under better control prior to going home. Previous medications she was on she was concerned about causing some confusion it is unclear whether she was having TIA like symptoms rather than reaction to the medications * Monitor overnight try to get her blood pressure under more reasonable control on oral medication * add cozaar * consider increasing Coreg # CVA, right parietal stroke symptoms of left hand clumsiness have resolved. * Aspirin and statin * BP control * Patient may need further rehab post hospitalization # cervical stenosis # hypokalemia, monitor replace as needed # disposition, patient and daughter have decided to go home with [facility]. They will set up the bed and supplies today, she will be discharged tomorrow assuming acceptable blood pressure control with the above changes. Subjective: Patient new to me and chart reviewed. Long discussion regarding pros and cons of proposed therapies. She currently is comfortable without throat pain she does feel weak but is able to ambulate with assistance and a walker Objective: Vital Signs Temp Pulse Resp BP Pulse Ox 36.5 C 82 18 192/96 H 94 04/06/18 08:00 04/06/18 08:00 04/06/18 08:00 04/06/18 08:00 04/06/18 08:00 Laboratory Results 04/05/18 07:59 04/05/18 07:59 04/05/18 04/06/18 04/07/18 05:59 05:59 05:59 Intake Total 100 550 Balance 100 550 PT 13.6 SEC (12.0-15.0) 04/02/18 17:32 INR 1.02 (0.83-1.16) 04/02/18 17:32 - Physical Exam Constitutional: no apparent distress, not in pain Eyes: PERRL Ears, Nose, Mouth, Throat: moist mucous membranes Cardiovascular: regular rate and rhythym, no murmur, rub, or gallop Respiratory: no respiratory distress, clear to auscultation Gastrointestinal: soft, non-tender abdomen Genitourinary: no bladder fullness Skin: normal color Musculoskeletal: generalized weakness Neurologic: AAOx3 Psychiatric: interacting appropriately ICD10 Worksheet Patient Problems: Problems Problem Status Onset Coronary artery disease Acute
[2018-04-06] MEDS ORDERED: POTASSIUM CL 20 MEQ TAB PO ONE (11:45)
[2018-04-06] MEDS: LOSARTAN POTASSIUM 50 MG TAB PO SCH (12:59)
--- NOTE | 2018-04-06 13:25 | SOAPPROG ---
GERARDO Progress Note Assessment/Plan: Assessment: 1. Left main coronary disease 2. Hypertension 3. Query TIA Long discussion today with the patient's daughter. Long discussion yesterday with the patient herself. I reviewed the angiograms primarily along with Dr. Bar. Patient is an acceptable risk for single left main coronary stenting with Impella backup. Overnight she has had no recurrent chest pain. She has no shortness of breath PND orthopnea. Will await patient family's decision. 04/06/18 13:22 Subjective: Uneventful night. Cardiac review of systems is negative for chest pain, shortness of breath, PND , orthopnea, palpitations, syncope, near syncope, edema. Objective: Laboratory Tests 04/02/18 04/02/18 04/03/18 15:05 16:00 05:45 Troponin I 0.276 H 0.239 H 0.526 H Vital Signs Temp Pulse Resp BP Pulse Ox 36.5 C 82 18 160/67 H 94 04/06/18 08:00 04/06/18 08:00 04/06/18 08:00 04/06/18 12:59 04/06/18 08:00 Laboratory Results 04/05/18 07:59 04/05/18 07:59 04/05/18 04/06/18 04/07/18 05:59 05:59 05:59 Intake Total 100 550 Balance 100 550 PT 13.6 SEC (12.0-15.0) 04/02/18 17:32 INR 1.02 (0.83-1.16) 04/02/18 17:32 EKG reveals LVH and strain with ST depression laterally Physical Exam - Physical Exam General Appearance: alert, no apparent distress Respiratory: lungs clear Cardiac/Chest: regular rate, rhythm Abdomen: non-tender, soft Back: Normal inspection Skin: normal color ICD10 Worksheet Patient Problems: Problems Problem Status Onset Coronary artery disease Acute Review of Systems - Review of Systems Constitutional: denies: chills, fever Cardiac: no symptoms reported Gastrointestinal/Abdominal: no symptoms reported Genitourinary: no symptoms Musculoskelatal: no symptoms
[2018-04-06] MEDS: TIOTROPIUM INHALER 18 MCG/DOSE 5 DOSE/MDI IH SCH (21:22)
--- NOTE | 2018-04-06 21:36 | ASMTCMCOM ---
CM Note CM Note Notes: 04/06/2018 Case Management Note Pt met w/pt [facility] and [facility] representatives today. Please see palliative team note. Pt chose [facility]. Faxed updates via [employer]. Equipment is being delivered tonight between [id number]. [facility] RN will meet pt at home tomorrow. Daughter planning to transport pt home tomorrow in private vehicle. Pt would like Morphine and Nitro delivered bedside before discharge. Pt is considering [facility]. [facility] provided education. See palliative note for more details. Case Management d/c poc: Home with [facility] on . Case Management to follow. Date Signed: 04/06/2018 04:07 PM Electronically Signed By:Amanda Mallory RN
[2018-04-07] MEDS: ASPIRIN 325 MG TAB PO SCH (08:42)
[2018-04-07] MEDS: CARVEDILOL 6.25 MG TAB PO SCH (08:42)
[2018-04-07] MEDS: ROSUVASTATIN CALCIUM 10 MG TAB PO SCH (08:42)
[2018-04-07] MEDS: LOSARTAN POTASSIUM 50 MG TAB PO SCH (08:45)
[2018-04-07 08:47] VITALS: BP 160/67
--- NOTE | 2018-04-07 12:10 | PDDCSUM ---
Discharge Summary Discharge Summary: 83-year-old with a history of hypertension dyslipidemia is admitted with left hand clumsiness and throat and neck pain. She was diagnosed with a small right parietal CVA and has severe multivessel CAD. CABG was originally recommended as stenting was felt to be a high risk. 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 She has been set up for home hospice. DDX: # CAD/NSTEMI. 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 # HTN, uncontrolled would like to get this under better control prior to going home. Previous medications she was on she was concerned about causing some confusion it is unclear whether she was having TIA like symptoms rather than reaction to the medications # CVA, right parietal stroke symptoms of left hand clumsiness have resolved. * Aspirin and statin * BP control # cervical stenosis # hypokalemia, replaced Exam: NAD AAOX3 RRR CTA B MEDS: SEE MED REC F/U: WITH HOSPICE PER THEIR TEAM TOTAL TIME SPENT ON D/C IS 40 MINS INCLUDING LONG DISCUSSION WITH THE PT AND DISCUSSION WITH NURSING, PHARMACY, AND CM.
--- NOTE | 2018-04-07 13:53 | ASMTLACE ---
LACE Length of stay for Answers: 4-6 days current admission Acuity / Level of Answers: Yes Care: Did the patient have an inpatient admission? Comorbidities - select Answers: Cerebrovascular disease all that apply (CVA, TIA, aneurysms, vasc ular dementia) Chronic pulmonary disease Coronary Artery Disease Mild liver or renal disease Other Notes: HTN; HLD; Pre-DM # of Emergency department Answers: 1-2 visits in the last 6 months Score: 16 Date Signed: 04/07/2018 01:52 PM Electronically Signed By:Armida Torres
--- NOTE | 2018-04-07 14:04 | ASDISCHSUM ---
Discharge Information Plan Status:Hospice-Home Medically Cleared to Leave:04/06/2018 Discharge Date:04/06/2018 CM D/C Disposition:Hospice Home ADT D/C Disposition:Hospice Home Projected Discharge Date:04/07/2018 02:15 PM Transportation at D/C:Family Discharge Delay Reason: Follow-Up Date:04/07/2018 02:15 PM Discharge Slot: Final Diagnosis:CAD, CVA Placement Information Referral Type:*Long Term/SNF Referral ID:[id number] Provider Name: Address 1: Phone Number: Address 2: Fax Number: [facility]: Selection Factors: State: Referral Type:*Hospice Referral ID:[id number] Provider Name:[facility] Address 1:[address] Phone Number: Address 2: Fax Number: [facility]:[place] Selection Factors: State:[place] Referral Type:Palliative Care Referral ID:-[id number] Provider Name: Address 1: Phone Number: Address 2: Fax Number: [facility]: Selection Factors: State: Patient Contact Information Contact Name:MARTHA Relationship:Daughter Address: Work Phone: City: [facility] Phone: State/Zip Code: Email: Financial Information Financial Class:Medicare Primary Plan Desc:MEDICARE INPATIENT Primary Plan Number:[id number] Secondary Plan Desc:[employer]/M[employer] SUPPLEMENT Secondary Plan Number:[id number] Assessment Information LACE LACE Length of stay for Answers: 4-6 days current admission Acuity / Level of Answers: Yes Care: Did the patient have an inpatient admission? Comorbidities - select Answers: Cerebrovascular disease all that apply (CVA, TIA, aneurysms, vasc ular dementia) Chronic pulmonary disease Coronary Artery Disease Mild liver or renal disease Other Notes: HTN; HLD; Pre-DM # of Emergency department Answers: 1-2 visits in the last 6 months Score: 16 Date Signed: 04/07/2018 01:52 PM Electronically Signed By:Armida Torres [facility] Progress Note CM Note CM Note Notes: CM reviewed pt's chart for d/c planning. Pt is an 83 y/o female who presented to the ED with mild disarthric speech, episodes of discoordination associated with HTN and left sided neck pain; these symptoms follow a tooth extraction and bone graft which occured 2 weeks ago. She was admitted for a stroke evaluation. OT/PT have been ordered. CM will follow for reccomendations. D/C Plan: TBD Date Signed: 04/02/2018 11:23 AM Electronically Signed By:Debbie Ortega [facility] CM Progress Note CM Note CM Note Notes: Pt discussed in rounds. Pt does not want to have open heart surgery at this time. CM met with pt's daughter who requested referral for SNF to be sent to [facility] in [facility]. CM spoke with Kellie from Agency and is expecting referral. CM completed referral. CM to follow. Plan: [facility] in [place]. Date Signed: 04/03/2018 02:04 PM Electronically Signed By:EVER Martínez [facility] Progress Note CM Note CM Note Notes: Patient plan of care reviewed with RN. Patien telects to forgo [facility] and wants to go to [facility] with hospice care. [facility]. Patient not having acute pain needs or signs of distress right now. CM to follow for needs. Plan: DC to [facility] with Hospice care. Date Signed: 04/04/2018 02:15 PM Electronically Signed By:Jessica Mahajan RN [facility] CM Progress Note CM Note CM Note Notes: In review of patient chart with hospice, no immediate hospice needs at this time. Palliative order sent over to [facility] and they will see her tomorrow. Date Signed: 04/04/2018 03:32 PM Electronically Signed By:Jessica Mahajan RN [facility] Progress Note CM Note CM Note Notes: Palliative care consult today - per Jim, patient's daughter would like to interview both [facility] and [facility] for hospice. Orders sent to both agencies. [facility] will visit today and [facility] tomorrow AM. The plan is for patient to discharge to Agency tomorrow; Kellie from [facility] was here to visit patient today. Case Management will follow. Current CM Discharge plan: [facility] w hospice ([facility] v [facility]) Date Signed: 04/05/2018 12:58 PM Electronically Signed By:Dolores Dash RN [facility] Progress Note CM Note CM Note Notes: Patient's daughter Zulma visited [facility] and was not pleased. She wants to explore other facilities. I suggested [facility], [facility], and [facility]. She will touch base with Case Management tomorrow and let us know where to send referrals. In the meantime, she has an interview w [facility] at 900 tomorrow and one with [facility] at 1000. Case Management will follow. Date Signed: 04/05/2018 04:46 PM Electronically Signed By:Dolores Dash RN [facility] Progress Note CM Note CM Note Notes: 04/06/2018 Case Management Note Pt met w/pt [facility] and [facility] representatives today. Please see palliative team note. Pt chose [facility]. Faxed updates via [employer]. Equipment is being delivered tonight between [id number]. [facility] GARCIA will meet pt at home tomorrow. Daughter planning to transport pt home tomorrow in private vehicle. Pt would like Morphine and Nitro delivered bedside before discharge. Pt is considering [facility] [place]. [facility] provided education. See palliative note for more details. Case Management d/c poc: Home with [facility] on . Case Management to follow. Date Signed: 04/06/2018 04:07 PM Electronically Signed By:Amanda Mallory RN Case Management Discharge Plan Note Case Management Discharge Discharge Order Complete? Answers: Yes Patient to Obtain Answers: via [facility] [employer] Transportation Arranged Answers: Family/Friends Transport will Pick (Date 04/07/2018 02:00 PM & Time) Faxed Final Orders Answers: Yes Agency/Facility Transfer Answers: Yes Report Printed & Faxed to Receiving Agency Family Notified Answers: Yes Notes: daughter in the room Discharge Comments Notes: Pt to discharge home, daughter to provide transport. [facility] contacted and discharge paperwork sent via [employer]. No further CM needs noted at this time. CM available should needs change. Date Signed: 04/07/2018 02:04 PM Electronically Signed By:Armida Torres Intervention Information Intervention Type:*OSCAR-Signed Date of Service:04/02/2018 03:03 PM Patient Type:Observation Staff Member:Janette Chester Hours: Discipline: Severity: Comment: Intervention Type:*ALEX-Signed Date of Service:04/07/2018 01:55 PM Patient Type:Inpatient Staff Member:Bebeto Lewis Hours: Discipline: Severity: Comment:
== END 2018-04-07 14:15 | disposition hospice, home (50) | DRG 64 ==
LOC: F3N 20:51 → OBSVTOIN 04-02 16:03 → F2W 04-02 20:55
PROVIDERS: ADMIT Internal Medicine; ATTEND Family Medicine
DX: I63.9 Cerebral infarction, unspecified (principal); I21.4 Non-ST elevation (NSTEMI) myocardial infarction; N17.9 Acute kidney failure, unspecified; I12.9 Hypertensive chronic kidney disease with stage 1 through stage 4 chronic kidney disease, or unspecified chronic kidney disease; N18.3 Chronic kidney disease, stage 3 (moderate); E87.1 Hypo-osmolality and hyponatremia; E87.3 Alkalosis; E78.5 Hyperlipidemia, unspecified; I25.10 Atherosclerotic heart disease of native coronary artery without angina pectoris; E87.6 Hypokalemia; J44.9 Chronic obstructive pulmonary disease, unspecified; J47.9 Bronchiectasis, uncomplicated; M50.31 Other cervical disc degeneration, high cervical region; M50.321 Other cervical disc degeneration at C4-C5 level; Z66 Do not resuscitate; Z87.891 Personal history of nicotine dependence
CPT/HCPCS: 85520-90; 92523-GN; 97161-GP; 97165-GO; 97530-GP; G0378; G8978-GP-CJ; G8979-GP-CI; G8987-GO-CI; G8988-GO-CI; G9168-GO-CI; G9169-GN-CI; G9170-GN-CI; J0360; J1644; J2250; J2270; J3010; Q9967